=== PATIENT | female | born 1995 ===

== ENCOUNTER → 2021-03-07 11:09 | Outpatient (CLI) | payer OTHER, SELFPAY ==
[2021-03-07 14:44] LABS: COVID19 -Nasal RAPID Negative (Negative)
== END ==
PROVIDERS: Visit Provider Nurse Practitioner Family
DX: Z20.822 Contact with and (suspected) exposure to COVID-19 (principal); R05.9 Cough, unspecified
CPT/HCPCS: 87635

== ENCOUNTER → 2021-04-20 15:16 | Outpatient (CLI) | payer OTHER, SELFPAY | PROVIDERS: Referring Provider Internal Medicine; Visit Provider Internal Medicine | DX: Z23 Encounter for immunization (principal) | CPT/HCPCS: 90471; 90686 ==